=== PATIENT | male | born 2000 | race Caucasian/White ===

== ENCOUNTER 2020-05-25 05:46 | Emergency (ER) | payer OTHER, SELFPAY ==
[2020-05-25 05:50] VITALS: BMI 21.2
[2020-05-25 06:04] VITALS: BP 113/71; PULSE 70; RESP 14; TEMP 36.7; O2SAT 98
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
[2020-05-25 07:37] LABS: Add Urine Microscopic? NO
[2020-05-25 07:47] LABS: Bilirubin Urine Neg (NEGATIVE); Blood Urine Neg (Negative); Glucose Urine UA Norm (Normal); Ketones Urine Negative (Negative); Leukocyte Esterase Urine Negative (Negative); Nitrate Urine Negative (Negative); Protein Urine Neg (Negative); Sulfosalicylic Acid Urine Negative (Negative); Urine Appearance Clear (CLEAR); Urine Color Straw (Yellow); Urobilinogen Urine Norm (Negative); pH Urine 8 (5-7)
[2020-05-25 07:50] LABS: Amphetamines Screen Urine Negative (Negative); Barbiturates Screen Urine Negative (Negative); Benzodiazepines Screen Urine Negative (Negative); Cocaine Screen Urine Negative (Negative); Opiate Screen Urine Negative (Negative); PCP Screen Urine Negative (Negative); THC Screen Urine Negative (Negative)
[2020-05-25 07:56] LABS: Basophils % 0.2 %; Eosinophils % 0.1 %; Hematocrit 48.8 % (42.0-52.0); Lymphocytes # 2.2 10^3/uL (1.5-6.5); Lymphocytes % 13.5 %; Mean Corpuscular HGB Conc 32.8 g/dL (30.0-36.0); Mean Corpuscular Hemoglobin 30.1 pg (28.0-34.0); Mean Corpuscular Volume 91.9 fL (80-94); Monocytes # 1.1 10^3/uL (0.2-0.9); Monocytes % 6.6 %; Neutrophils # 12.8 10^3/uL (1.8-8.0); Neutrophils % 79.3 %; Nucleated Red Blood Cells % 0 %; Platelet Count 237 10^3/cmm (130-400); Red Blood Count 5.31 10^6/uL (4.1-5.3); White Blood Count 16.1 10^3/uL (4.5-13.0)
[2020-05-25 08:11] LABS: Alanine Aminotransferase 23 U/L (0-41); Albumin Level 5.5 g/dL (3.5-5.2); Alcohol Level 106 mg/dL (0-10); Alkaline Phosphatase 60 IU/L (40-130); Anion Gap 15.2 (5-19); Aspartate Amino Transferase 35 U/L (0-40); Blood Urea Nitrogen 7 mg/dL (6-20); Carbon Dioxide 29 mmol/L (22-29); Chloride 103 mmol/L (98-107); Globulin 2.8 g/dL (1.3-4.6); Glomerular Filtration Rate 95.3 mL/min (90-130); Glucose 104 mg/dL (65-115); Osmolality Calculated 292 mOsm/kg (285-295); Potassium 4.2 mmol/L (3.5-5.1); Sodium 143 mmol/L (136-145); Total Bilirubin 0.4 mg/dL (0.15-1.2); Total Protein 8.3 g/dL (6.6-8.7)
[2020-05-25 08:53] VITALS: BP 110/50; PULSE 74; RESP 16; O2SAT 99
--- NOTE | 2020-05-28 08:04 | DCPLANNER ---
retail business manager had message to schedule a follow up appointment for patient with Dr. Price, ENT. retail business manager faxed patients records to the office of Dr. Price. Clinic will call foster care case manager and patient with appointment information.
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
== END 2020-05-25 08:54 | disposition home or self-care (01) ==
PROVIDERS: Emergency Medicine; Emergency Provider Family Medicine
DX: S02.609A Fracture of mandible, unspecified, initial encounter for closed fracture (principal); S02.40CA Maxillary fracture, right side, initial encounter for closed fracture; Y04.2XXA Assault by strike against or bumped into by another person, initial encounter; F17.210 Nicotine dependence, cigarettes, uncomplicated
CPT/HCPCS: 12345; 70450; 70486; 72125; 73130; 80053; 80306; 80307; 81003; 85025; 99284